=== PATIENT | female | born 1990 | race Caucasian/White ===

== ENCOUNTER 2017-09-07 12:38 | Emergency (ER) | payer OTHER ==
[~2017-09-07] VITALS: Ht 162.6 cm; Wt 59.1 kg
[2017-09-07 13:02] LABS: COLLECTION METHOD CLEAN CATCH
[2017-09-07] MEDS ORDERED: CEPHALEXIN500 M1 PO (13:07)
[2017-09-07 13:09] VITALS: TEMP 100.5
[2017-09-07 13:11] LABS: MUCOUS Present /lpf; PH 7 (5-8); URINE APPEARANCE Hazy; URINE BACTERIA Rare /hpf; URINE BILIRUBIN Negative (NEGATIVE); URINE BLOOD Negative (NEGATIVE); URINE COLOR Yellow; URINE GLUCOSE Negative (NEGATIVE); URINE KETONE Negative (NEGATIVE); URINE LEUKOCYTE ESTERASE 1+ (NEGATIVE); URINE NITRATE Negative (NEGATIVE); URINE PROTEIN(semi-quant) 1+ (NEGATIVE); URINE RBC 0-2 /hpf; URINE UROBILINOGEN Negative (NEGATIVE)
[2017-09-07 13:31] LABS: BASO % 0.2 % (0.0-2.0); EOS % 0.2 % (0-4.0); GRAN # 11.5 (1.4-6.5); LYMPH % 7.4 % (20.0-51.0); MEAN CELL VOLUME 86 fl (80.0-100.0); MEAN CORPUSCULAR HGB CONC 33 g/dl (33.0-37.0); MEAN PLATELET VOLUME 11.8 fl (7.4-10.4); MONO # 0.7 (0.1-0.6); MONO % 5.3 % (1.7-9.3); PLATELET COUNT 168 K/mm3 (130-400); REDCELL DISTRIBUTION WIDTH-CV 13.8 % (11.5-14.5)
[2017-09-07 13:37] LABS: HEMATOCRIT 31.8 % (37.0-47.0); HEMOGLOBIN 10.5 g/dl (12.5-16.0); MEAN CORPUSCULAR HEMOGLOBIN 28 pg (27.0-31.0)
[2017-09-07 13:45] LABS: ALBUMIN 3.3 gm/dL (3.5-5.0); BILIRUBIN,TOTAL 0.4 mg/dL (0.0-1.0); C-REACTIVE PROTEIN 5.1 mg/dL (0.0-0.9); CALCIUM 8.4 mg/dL (8.4-10.2); CREATININE, serum 0.63 mg/dL (0.52-1.25); TOTAL PROTEIN 7.2 gm/dL (6.4-8.2)
[2017-09-07] MEDS ORDERED: MACROBID 1100 MG/CAP PO (14:30)
[2017-09-07 14:35] VITALS: BP 102/68; PULSE 98
== END 2017-09-07 14:37 | disposition home or self-care (01) ==
LOC: COL.ER 12:38
PROVIDERS: Nurse Practitioner
DX: R10.9 Unspecified abdominal pain (principal)
CPT/HCPCS: J7030

== ENCOUNTER → 2017-10-14 | Outpatient (CLI) | payer OTHER ==
[~2017-10-14] VITALS: Ht 154.9 cm; Wt 62.7 kg
[~2017-10-14] MED LIST: CEPHALEXIN500 M1 PO; MACROBID 1100 MG/CAP PO; PRENATAL1 TA7 PO
[2017-10-14 17:47] VITALS: BP 121/61; PULSE 117; TEMP 98
[2017-10-14 18:08] VITALS: BP 109/63; PULSE 101
== END ==
LOC: LDRO 17:34
DX: O42.913 Preterm premature rupture of membranes, unspecified as to length of time between rupture and onset of labor, third trimester (principal); Z3A.28 28 weeks gestation of pregnancy

== ENCOUNTER 2017-11-29 12:05 | Outpatient (CLI) | payer OTHER ==
[~2017-11-29] VITALS: Ht 152.4 cm; Wt 65.5 kg
[2017-11-29 12:09] VITALS: BP 106/70; PULSE 116; TEMP 97.5
[2017-11-29] MEDS ORDERED: PEPCID AC20 MG PO (12:15)
[2017-11-29 12:30] VITALS: BP 101/67; PULSE 108
[2017-11-29 13:00] VITALS: BP 105/71; PULSE 95
== END 2017-11-29 13:06 | disposition home or self-care (01) ==
LOC: LDRO 12:05 → LDR 13:06 → LDRO 13:06
DX: O62.9 Abnormality of forces of labor, unspecified (principal); Z3A.34 34 weeks gestation of pregnancy
CPT/HCPCS: OP

== ENCOUNTER 2017-12-01 10:01 | Outpatient (CLI) | payer OTHER ==
[~2017-12-01] VITALS: Ht 154.9 cm; Wt 65.9 kg
[2017-12-01] VITALS (7 sets, daily range): BP systolic 97–106; BP diastolic 61–73; PULSE 100–130; TEMP 97.8
[~2017-12-01 10:01] MED LIST changes: +PEPCID AC20 MG PO
[2017-12-01 13:22] LABS: MEAN CELL VOLUME 78 fl (80.0-100.0); MEAN CORPUSCULAR HGB CONC 31 g/dl (33.0-37.0); MEAN PLATELET VOLUME 12.2 fl (7.4-10.4); PLATELET COUNT 190 K/mm3 (130-400); RED BLOOD COUNT 3.94 M/mm3 (4.10-5.30); REDCELL DISTRIBUTION WIDTH-CV 16.4 % (11.5-14.5)
[2017-12-01 13:24] LABS: HEMATOCRIT 30.7 % (37.0-47.0); HEMOGLOBIN 9.5 g/dl (12.5-16.0); MEAN CORPUSCULAR HEMOGLOBIN 24 pg (27.0-31.0)
[2017-12-01 13:51] LABS: BAND 4 % (0-10); EOSINOPHIL 1 % (0-4); LYMPHOCYTE 7 % (20.0-51.0); NEUTROPHILS 85 % (42.0-75.2); PLATELET ESTIMATE NORMAL (NORMAL)
[2017-12-01 13:53] LABS: ANISOCYTOSIS 1+; POLYCHROMASIA 2+
[2017-12-01 13:54] LABS: HYPOCHROMIA 1+
== END 2017-12-01 14:35 | disposition home or self-care (01) ==
LOC: LDRO 10:01 → LDR 10:05 → LDRO 14:35
PROVIDERS: Obstetrics & Gynecology
DX: O62.9 Abnormality of forces of labor, unspecified (principal); Z3A.35 35 weeks gestation of pregnancy
CPT/HCPCS: OP; J7120

== ENCOUNTER 2017-12-10 09:40 | Inpatient (IN) | payer OTHER ==
[2017-12-10] VITALS (19 sets, daily range): BP systolic 19–130; BP diastolic 53–102; PULSE 69–127; TEMP 97.6
[~2017-12-10] VITALS: Ht 154.9 cm; Wt 66.4 kg
[2017-12-10 10:16] LABS: BASO # 0.1 (0.0-0.2); BASO % 0.4 % (0.0-2.0); EOS # 0.3 (0.0-0.7); EOS % 1.9 % (0-4.0); GRAN # 11.5 (1.4-6.5); LYMPH # 1.8 (1.2-3.4); LYMPH % 12.2 % (20.0-51.0); MEAN CELL VOLUME 76 fl (80.0-100.0); MEAN CORPUSCULAR HGB CONC 31 g/dl (33.0-37.0); MEAN PLATELET VOLUME 11.8 fl (7.4-10.4); MONO # 0.6 (0.1-0.6); MONO % 4.3 % (1.7-9.3); PLATELET COUNT 231 K/mm3 (130-400); REDCELL DISTRIBUTION WIDTH-CV 16.5 % (11.5-14.5)
[2017-12-10 10:18] LABS: HEMATOCRIT 28.2 % (37.0-47.0); HEMOGLOBIN 8.7 g/dl (12.5-16.0); MEAN CORPUSCULAR HEMOGLOBIN 24 pg (27.0-31.0)
[2017-12-11] MEDS ORDERED: PERCOCET 325 MG1 TA2 PO (06:13)
[2017-12-11] MEDS ORDERED: IBU600 MG PO (06:13)
[2017-12-11 07:59] LABS: HEMATOCRIT 26.8 % (37.0-47.0); HEMOGLOBIN 8.2 g/dl (12.5-16.0)
[2017-12-11 08:09] VITALS: BP 101/62; PULSE 76; TEMP 98.4
[2017-12-11 16:19] VITALS: BP 111/68; PULSE 78
[2017-12-11 20:00] VITALS: BP 89/59; PULSE 89; TEMP 98.5
[2017-12-12 08:22] VITALS: BP 99/63; PULSE 74; TEMP 98.4
== END 2017-12-12 14:50 | disposition home or self-care (01) | DRG 765 ==
LOC: LDRO 09:40 → OB 09:50
PROVIDERS: Obstetrics & Gynecology
PROC: 10D00Z1 Extraction of Products of Conception, Low, Open Approach (ICD-10-PCS; principal; 2017-12-10)
PROC: 0UT70ZZ Resection of Bilateral Fallopian Tubes, Open Approach (ICD-10-PCS; 2017-12-10)
DX: O34.211 Maternal care for low transverse scar from previous cesarean delivery (principal); O60.14X0 Preterm labor third trimester with preterm delivery third trimester, not applicable or unspecified; Z3A.36 36 weeks gestation of pregnancy; Z37.0 Single live birth; O99.02 Anemia complicating childbirth; Z40.03 Encounter for prophylactic removal of fallopian tube(s); Z80.41 Family history of malignant neoplasm of ovary
CPT/HCPCS: J0690; J1885; J2370; J2405; J2590; J3010; J7120